=== PATIENT | female | born 1985 | race Caucasian/White ===

== ENCOUNTER → 2021-07-10 | Outpatient (CLI) | payer BC ==
[2021-07-10 12:39] LABS: BASO # 0.03 K/mm3 (0.02-0.10); EOS # 0.06 K/mm3 (0.04-0.40); EOS % 0.9 % (1.0-5.0); HEMATOCRIT 42.7 % (37.0-47.0); HEMOGLOBIN 14.7 g/dL (12.5-16.0); LYMPH# 1.61 K/mm3 (1.50-4.00); MEAN CELL VOLUME 96 fl (78-100); MEAN CORPUSCULAR HEMOGLOBIN 33 pg (27-31); MEAN CORPUSCULAR HGB CONC 34 g/dL (33-37); MEAN PLATELET VOLUME 8.5 fl (7.4-10.4); MONO # 0.37 K/mm3 (0.20-0.80); NEU # 4.76 K/mm3 (1.40-6.50); PLATELET COUNT 297 K/mm3 (130-400); RED BLOOD COUNT 4.47 M/mm3 (4.10-5.30); RED CELL DISTRIBUTION WIDTH 12.2 % (11.5-14.5); WHITE BLOOD COUNT 6.8 K/mm3 (4.8-10.8)
[2021-07-10 12:58] LABS: ALBUMIN 4.7 g/dL (3.5-5.0)
[2021-07-10 12:59] LABS: CALCIUM 8.5 mg/dL (8.3-10.5)
[2021-07-10 13:01] LABS: TOTAL PROTEIN 7.9 g/dL (6.4-8.3)
[2021-07-10 13:03] LABS: TOTAL BILIRUBIN 0.7 mg/dL (0.2-1.2)
[2021-07-11 13:59] LABS: ANA SCREEN with REFLEX Negative (Negative)
== END ==
LOC: LAB 12:25
PROVIDERS: Physician Assistant
DX: Z00.00 Encounter for general adult medical examination without abnormal findings (principal); E03.9 Hypothyroidism, unspecified; K90.9 Intestinal malabsorption, unspecified; L40.9 Psoriasis, unspecified; E06.3 Autoimmune thyroiditis; Z83.2 Family history of diseases of the blood and blood-forming organs and certain disorders involving the immune mechanism

== ENCOUNTER → 2022-03-18 | Outpatient (CLI) | payer BC ==
[2022-03-18 11:56] LABS: BASO # 0.03 K/mm3 (0.02-0.10); EOS # 0.05 K/mm3 (0.04-0.40); EOS % 0.9 % (1.0-5.0); HEMATOCRIT 41.2 % (37.0-47.0); HEMOGLOBIN 14.1 g/dL (12.5-16.0); MEAN CELL VOLUME 95 fl (78-100); MEAN CORPUSCULAR HEMOGLOBIN 33 pg (27-31); MEAN CORPUSCULAR HGB CONC 34 g/dL (33-37); MEAN PLATELET VOLUME 8.7 fl (7.4-10.4); MONO # 0.26 K/mm3 (0.20-0.80); NEU # 3.37 K/mm3 (1.40-6.50); PLATELET COUNT 280 K/mm3 (130-400); RED BLOOD COUNT 4.32 M/mm3 (4.10-5.30); RED CELL DISTRIBUTION WIDTH 11.9 % (11.5-14.5); WHITE BLOOD COUNT 5.3 K/mm3 (4.8-10.8)
[2022-03-18 12:06] LABS: ALBUMIN 4.4 g/dL (3.5-5.0)
[2022-03-18 12:07] LABS: POTASSIUM 4.1 mmol/L (3.5-5.1)
[2022-03-18 12:08] LABS: CALCIUM 8.6 mg/dL (8.3-10.5)
[2022-03-18 12:09] LABS: TOTAL PROTEIN 7.2 g/dL (6.4-8.3)
[2022-03-18 12:11] LABS: TOTAL BILIRUBIN 0.9 mg/dL (0.2-1.2)
[2022-03-19 01:23] LABS: T3 TOTAL 68 ng/dL (35-193)
== END ==
LOC: LAB 11:37
PROVIDERS: Physician Assistant
DX: E06.3 Autoimmune thyroiditis (principal); E03.9 Hypothyroidism, unspecified; Z97.5 Presence of (intrauterine) contraceptive device; E55.9 Vitamin D deficiency, unspecified; K90.9 Intestinal malabsorption, unspecified; R53.83 Other fatigue; R51.9 Headache, unspecified

== ENCOUNTER → 2023-09-14 | Outpatient (CLI) | payer BC ==
[2023-09-14 15:36] LABS: BASO # 0.02 K/mm3 (0.02-0.10); EOS # 0.05 K/mm3 (0.04-0.40); EOS % 0.8 % (1.0-5.0); HEMOGLOBIN 13.8 g/dL (12.5-16.0); LYMPH# 1.41 K/mm3 (1.50-4.00); MEAN CELL VOLUME 95 fl (78-100); MEAN CORPUSCULAR HEMOGLOBIN 33 pg (27-31); MEAN CORPUSCULAR HGB CONC 35 g/dL (33-37); MEAN PLATELET VOLUME 8.5 fl (7.4-10.4); MONO # 0.33 K/mm3 (0.20-0.80); NEU # 4.38 K/mm3 (1.40-6.50); PLATELET COUNT 230 K/mm3 (130-400); RED BLOOD COUNT 4.23 M/mm3 (4.10-5.30); RED CELL DISTRIBUTION WIDTH 11.8 % (11.5-14.5); WHITE BLOOD COUNT 6.2 K/mm3 (4.8-10.8)
[2023-09-14 15:46] LABS: ALBUMIN 4.3 g/dL (3.5-5.0)
[2023-09-14 15:47] LABS: CALCIUM 8.3 mg/dL (8.3-10.5)
[2023-09-14 15:48] LABS: TOTAL PROTEIN 6.9 g/dL (6.4-8.3)
[2023-09-14 15:50] LABS: TOTAL BILIRUBIN 0.9 mg/dL (0.2-1.2)
== END ==
LOC: LAB 15:22
PROVIDERS: Physician Assistant
DX: E03.9 Hypothyroidism, unspecified (principal); K90.9 Intestinal malabsorption, unspecified; E78.5 Hyperlipidemia, unspecified